=== PATIENT | male | born 2000 | race Caucasian/White ===

== ENCOUNTER 2024-05-17 21:22 | Emergency (ER) | payer OTHER, BC ==
[~2024-05-17] VITALS: Ht 182.9 cm; Wt 104.5 kg
[2024-05-17 23:00] VITALS: BP 132/78
== END 2024-05-17 22:59 | disposition home or self-care (01) ==
LOC: ED 21:22
DX: F32.A Depression, unspecified (principal); F10.10 Alcohol abuse, uncomplicated; Z79.899 Other long term (current) drug therapy